=== PATIENT | female | born 1930 | race Caucasian/White ===

== ENCOUNTER 2019-02-21 13:36 | Emergency (ER) | payer MEDICARE ==
[~2019-02-21] VITALS: Ht 160 cm; Wt 64.0 kg
[~2019-02-21 13:36] MED LIST: ASPI-1264 PO
[2019-02-21] MEDS ORDERED: acetaminophen 325mg tablet PO ONE (14:45)
--- NOTE | 2019-02-21 15:37 | NUR ---
BACK FROM CT PAIN DOWN TO A DULL ACHE LONG SHE DOESNT MOVE HER LEG
[2019-02-21 16:47] VITALS: BP 160/85
== END 2019-02-21 16:49 | disposition home or self-care (01) ==
LOC: ER 13:37
DX: S82.032A Displaced transverse fracture of left patella, initial encounter for closed fracture (principal); S00.83XA Contusion of other part of head, initial encounter; S80.11XA Contusion of right lower leg, initial encounter; I10 Essential (primary) hypertension; K21.9 Gastro-esophageal reflux disease without esophagitis; Z98.890 Other specified postprocedural states; Z79.82 Long term (current) use of aspirin; W01.0XXA Fall on same level from slipping, tripping and stumbling without subsequent striking against object, initial encounter; Y93.89 Activity, other specified; Y92.89 Other specified places as the place of occurrence of the external cause; Y99.8 Other external cause status
CPT/HCPCS: 29505; 70450; 72125; 73564; 99284

== ENCOUNTER 2021-11-18 12:51 | Inpatient (IN) | payer MEDICARE ==
[~2021-11-18] VITALS: Ht 162.6 cm; Wt 63.6 kg
[2021-11-18] MEDS ORDERED: tranexamic acid inj. 600 MG in normal saline 100ml IV soln 100 ML IV ONE (14:00)
[2021-11-18 14:17] LABS: BASOPHILS # (AUTO) 0.1 X10'3 (0-0.2); BASOPHILS % (AUTO) 0.9 % (0-1); EOSINOPHILS % (AUTO) 0 % (0-6); HEMATOCRIT 40.8 % (35.0-45.0); HEMOGLOBIN 13.4 g/dl (12.0-16.0); LYMPHOCYTES # (AUTO) 1.2 X10'3 (1.1-4.8); LYMPHOCYTES % (AUTO) 11.5 % (21-51); MEAN CORPUSCULAR HEMOGLOBIN 28.8 PG (27.0-31.0); MEAN CORPUSCULAR HGB CONC 32.9 g/dL (33.0-36.5); MEAN CORPUSCULAR VOLUME 87.5 FL (78-98); MEAN PLATELET VOLUME 7.4 FL (7.4-10.4); MONOCYTES # (AUTO) 0.5 X10'3 (0-0.9); MONOCYTES % (AUTO) 4.4 % (2-12); NEUTROPHILS % (AUTO) 83.2 % (42-75); PLATELET COUNT 356 X10'3 (140-440); RED BLOOD COUNT 4.66 X10'6 (4.20-5.60); RED CELL DISTRIBUTION WIDTH 14.9 % (11.5-14.5); WHITE BLOOD COUNT 10.8 X10'3 (4.5-11.0)
[2021-11-18 14:26] LABS: ALANINE AMINOTRANSFERASE 16 U/L (12-78); ALBUMIN 3.4 G/DL (3.4-5.0); ALBUMIN/GLOBULIN RATIO 0.9 (1.1-1.5); ALKALINE PHOSPHATASE 160 IU/L (46-116); ANION GAP 10 (8-16); ASPARTATE AMINO TRANSFERASE 21 U/L (10-37); BILIRUBIN,TOTAL 0.4 MG/DL (0.1-1.0); BLOOD UREA NITROGEN 18 MG/DL (7-18); BUN/CREATININE RATIO 22.2 (6.6-38.0); CALCIUM 8.6 MG/DL (8.5-10.1); CHLORIDE 105 MMOL/L (99-107); CREATININE 0.81 MG/DL (0.40-0.90); GLUCOSE 132 MG/DL (70-104); POTASSIUM 4.2 MMOL/L (3.5-5.1); SODIUM 142 MMOL/L (135-145); TOTAL CARBON DIOXIDE 26.6 MMOL/L (24-32); TOTAL PROTEIN 7.1 G/DL (6.4-8.2); eGFR 67 ML/MIN
--- NOTE | 2021-11-18 14:27 | NUR ---
SASHA CEBALLOS (FRIEND) [phone].
[2021-11-18 14:30] LABS: OCCULT BLOOD STOOL POSITIVE (Neg)
[2021-11-18] MEDS ORDERED: PEG 3350/Na sulf,bicarb,Cl/KCl oral sol 4 liter bottle PO ONE (15:20)
[2021-11-18 15:37] LABS: APTT 29 SECONDS (22-32)
--- NOTE | 2021-11-18 15:49 | NUR ---
FOAM RUBBER FABRICATOR AT BEDSIDE.
[2021-11-18] MEDS ORDERED: POTASSIUM BICARB 20meq eff tab 20 MEQ TABLET.EFF PO PRN ×2 (15:55)
[2021-11-18] MEDS ORDERED: magnesium 4gm in 100ml NS 100 ML IV PRN (15:55)
[2021-11-18] MEDS ORDERED: ondansetron/PF 4mg/2ml inj IV PRN (15:55)
[2021-11-18] MEDS ORDERED: acetaminophen 325mg tablet PO PRN (15:55)
[2021-11-18] MEDS ORDERED: magnesium 2GM in 50ml NS 50 ML IV PRN (15:55)
[2021-11-18] MEDS ORDERED: potassium CL 10mEq/100ml bag 100 ML IV PRN (15:55)
--- NOTE | 2021-11-18 16:21 | NUR ---
CALL TO PHARMACY AT THIS TIME FOR JODY MARS TO SEND.
--- NOTE | 2021-11-18 16:55 | NUR ---
RESERVATIONS SPECIALIST AT BEDSIDE.
--- NOTE | 2021-11-18 17:10 | NUR ---
Patient in room [facility] 4012A. I have received report from ROWENA KINCAID and had the opportunity to ask questions and assume patient care.
[2021-11-18 18:00] VITALS: BP 133/67
--- NOTE | 2021-11-18 18:33 | NUR ---
Problems reprioritized. Patient report given, questions answered & plan of care reviewed with ROWENA CHAUDHRY.
[2021-11-18] MEDS: K and/or MAG REPLACEMENT MC SCH (20:00)
[2021-11-18] MEDS: pantoprazole 40MG/NS 100ML BAG 100 ML IV SCH (20:25)
[2021-11-18 21:57] VITALS: BP 135/41
[2021-11-19] VITALS (9 sets, daily range): BP systolic 96–154; BP diastolic 40–105
[2021-11-19] MEDS: pantoprazole 40MG/NS 100ML BAG 100 ML IV SCH ×5 (00:45→20:23)
[2021-11-19 04:15] LABS: BASOPHILS % (AUTO) 0.6 % (0-1); EOSINOPHILS % (AUTO) 0.3 % (0-6); HEMATOCRIT 32.5 % (35.0-45.0); HEMOGLOBIN 10.5 g/dl (12.0-16.0); LYMPHOCYTES # (AUTO) 1.9 X10'3 (1.1-4.8); LYMPHOCYTES % (AUTO) 32.1 % (21-51); MEAN CORPUSCULAR HEMOGLOBIN 28.4 PG (27.0-31.0); MEAN CORPUSCULAR HGB CONC 32.5 g/dL (33.0-36.5); MEAN CORPUSCULAR VOLUME 87.5 FL (78-98); MEAN PLATELET VOLUME 7.4 FL (7.4-10.4); MONOCYTES # (AUTO) 0.5 X10'3 (0-0.9); NEUTROPHILS # (AUTO) 3.5 X10'3 (1.8-7.7); PLATELET COUNT 290 X10'3 (140-440); RED BLOOD COUNT 3.71 X10'6 (4.20-5.60); RED CELL DISTRIBUTION WIDTH 14.6 % (11.5-14.5); WHITE BLOOD COUNT 6.1 X10'3 (4.5-11.0)
[2021-11-19 04:30] LABS: ALANINE AMINOTRANSFERASE 13 U/L (12-78); ALBUMIN 2.9 G/DL (3.4-5.0); ALBUMIN/GLOBULIN RATIO 0.9 (1.1-1.5); ALKALINE PHOSPHATASE 127 IU/L (46-116); ANION GAP 11 (8-16); ASPARTATE AMINO TRANSFERASE 20 U/L (10-37); BILIRUBIN,TOTAL 0.7 MG/DL (0.1-1.0); BLOOD UREA NITROGEN 16 MG/DL (7-18); BUN/CREATININE RATIO 22.2 (6.6-38.0); CALCIUM 8.3 MG/DL (8.5-10.1); CHLORIDE 107 MMOL/L (99-107); CREATININE 0.72 MG/DL (0.40-0.90); GLUCOSE 111 MG/DL (70-104); MAGNESIUM 2.1 MG/DL (1.5-2.4); POTASSIUM 3.9 MMOL/L (3.5-5.1); SODIUM 145 MMOL/L (135-145); TOTAL CARBON DIOXIDE 27.1 MMOL/L (24-32); TOTAL PROTEIN 6.1 G/DL (6.4-8.2); eGFR 76 ML/MIN
--- NOTE | 2021-11-19 06:10 | NUR ---
Problems reprioritized. Patient report given, questions answered & plan of care reviewed with ROWENA JEREZ.
--- NOTE | 2021-11-19 06:30 | NUR ---
Patient in room [facility] 4012A. I have received report from ROWENA CHAUDHRY and had the opportunity to ask questions and assume patient care.
[2021-11-19] MEDS: K and/or MAG REPLACEMENT MC SCH ×2 (08:00→18:57)
[2021-11-19] MEDS ORDERED: fentaNYL/PF 50MCG/1 ML 2ML syringe ONE (13:45)
[2021-11-19] MEDS ORDERED: MIDAZolam 1 MG/ML 5ML VIAL ONE (13:46)
[2021-11-19 17:28] LABS: HEMATOCRIT 33.1 % (35.0-45.0); HEMOGLOBIN 10.8 g/dl (12.0-16.0); MEAN CORPUSCULAR HEMOGLOBIN 28.5 PG (27.0-31.0); MEAN CORPUSCULAR HGB CONC 32.6 g/dL (33.0-36.5); MEAN CORPUSCULAR VOLUME 87.4 FL (78-98); MEAN PLATELET VOLUME 7.5 FL (7.4-10.4); PLATELET COUNT 292 X10'3 (140-440); RED BLOOD COUNT 3.79 X10'6 (4.20-5.60); RED CELL DISTRIBUTION WIDTH 14.6 % (11.5-14.5); WHITE BLOOD COUNT 7.8 X10'3 (4.5-11.0)
--- NOTE | 2021-11-19 18:44 | NUR ---
Problems reprioritized. Patient report given, questions answered & plan of care reviewed with ROWENA CHAUDHRY.
[2021-11-20] MEDS: pantoprazole 40MG/NS 100ML BAG 100 ML IV SCH ×3 (02:09→07:45)
[2021-11-20 06:00] VITALS: BP 129/82
--- NOTE | 2021-11-20 06:10 | NUR ---
Problems reprioritized. Patient report given, questions answered & plan of care reviewed with pierce Ugarte.
--- NOTE | 2021-11-20 06:23 | NUR ---
Patient in room [facility] 4012A. I have received report from ROWENA CHAUDHRY and had the opportunity to ask questions and assume patient care.
[2021-11-20 06:26] LABS: BASOPHILS # (AUTO) 0.1 X10'3 (0-0.2); BASOPHILS % (AUTO) 0.9 % (0-1); EOSINOPHILS # (AUTO) 0.1 X10'3 (0-0.9); EOSINOPHILS % (AUTO) 0.8 % (0-6); HEMATOCRIT 33.8 % (35.0-45.0); HEMOGLOBIN 11.1 g/dl (12.0-16.0); LYMPHOCYTES # (AUTO) 2.9 X10'3 (1.1-4.8); LYMPHOCYTES % (AUTO) 35.9 % (21-51); MEAN CORPUSCULAR HEMOGLOBIN 29.1 PG (27.0-31.0); MEAN CORPUSCULAR HGB CONC 32.9 g/dL (33.0-36.5); MEAN CORPUSCULAR VOLUME 88.4 FL (78-98); MEAN PLATELET VOLUME 7.6 FL (7.4-10.4); MONOCYTES # (AUTO) 0.6 X10'3 (0-0.9); MONOCYTES % (AUTO) 7.5 % (2-12); NEUTROPHILS # (AUTO) 4.4 X10'3 (1.8-7.7); NEUTROPHILS % (AUTO) 54.9 % (42-75); PLATELET COUNT 310 X10'3 (140-440); RED BLOOD COUNT 3.82 X10'6 (4.20-5.60); RED CELL DISTRIBUTION WIDTH 14.7 % (11.5-14.5)
[2021-11-20 06:52] LABS: ALANINE AMINOTRANSFERASE 12 U/L (12-78); ALBUMIN/GLOBULIN RATIO 0.9 (1.1-1.5); ALKALINE PHOSPHATASE 138 IU/L (46-116); ANION GAP 8 (8-16); ASPARTATE AMINO TRANSFERASE 24 U/L (10-37); BILIRUBIN,TOTAL 0.3 MG/DL (0.1-1.0); BLOOD UREA NITROGEN 10 MG/DL (7-18); BUN/CREATININE RATIO 12.5 (6.6-38.0); CALCIUM 8.5 MG/DL (8.5-10.1); CHLORIDE 108 MMOL/L (99-107); GLUCOSE 100 MG/DL (70-104); MAGNESIUM 2.1 MG/DL (1.5-2.4); POTASSIUM 3.7 MMOL/L (3.5-5.1); SODIUM 143 MMOL/L (135-145); TOTAL CARBON DIOXIDE 27.4 MMOL/L (24-32); TOTAL PROTEIN 6.3 G/DL (6.4-8.2); eGFR 68 ML/MIN
[2021-11-20] MEDS: K and/or MAG REPLACEMENT MC SCH (08:00)
[2021-11-20 10:00] VITALS: BP 140/99
[2021-11-20] MEDS ORDERED: PANT-47 PO (11:11)
--- NOTE | 2021-11-20 15:22 | NUR ---
PATIENT STABLE AND APPROPRIATE FOR DISCHARGE, IV TAKEN OUT, EDUCATION GIVEN, NEW MEDS E-SCRIPTED TO PREFERRED PHARMACY, ALL BELONGINGS SENT WITH PATIENT, PATIENT TAKEN TO LOBBY BY WHEELCHAIR TO AN AWAITING CAR WHERE FAMILY FRIEND WILL TAKE PATIENT HOME
== END 2021-11-20 15:09 | disposition home or self-care (01) | DRG 393 ==
LOC: ER 12:52 → ED HOLD 15:57 → EDBEDREQ 16:49 → ORTHO 4S 17:20
PROVIDERS: ADMIT Family Medicine; ATTEND Family Medicine
PROC: 0DJD8ZZ Inspection of Lower Intestinal Tract, Via Natural or Artificial Opening Endoscopic (ICD-10-PCS; principal; 2021-11-19)
DX: K64.8 Other hemorrhoids (principal); K57.31 Diverticulosis of large intestine without perforation or abscess with bleeding; D62 Acute posthemorrhagic anemia; Z96.643 Presence of artificial hip joint, bilateral; K21.9 Gastro-esophageal reflux disease without esophagitis; M54.50 Low back pain, unspecified; M25.552 Pain in left hip; I10 Essential (primary) hypertension; M16.0 Bilateral primary osteoarthritis of hip; Z79.82 Long term (current) use of aspirin; Z87.11 Personal history of peptic ulcer disease; Z87.891 Personal history of nicotine dependence
CPT/HCPCS: 36415; 45378; 71045; 73521; 80053; 82272; 83735; 85025; 85027; 85610; 85730; 87081; 93306; 96374; 97116; 97161; 97530; 99152; 99153; 99285; A4620; C9113; G0378; J2250; J3010; J3490; J7030